=== PATIENT | male | born 1990 | race Caucasian/White ===

== ENCOUNTER 2021-03-01 14:16 | Emergency (ER) | payer SELFPAY ==
[~2021-03-01] VITALS: Ht 177.8 cm; Wt 109.1 kg
[2021-03-01 14:21] VITALS: BP 129/83
== END 2021-03-01 17:22 | disposition left against medical advice (07) ==
LOC: EMS 14:33
DX: J02.9 Acute pharyngitis, unspecified (principal); Z53.21 Procedure and treatment not carried out due to patient leaving prior to being seen by health care provider